=== PATIENT | male | born 1985 | race Caucasian/White ===

== ENCOUNTER 2024-03-07 23:12 | Emergency (ER) | payer MEDICAID ==
[~2024-03-07] VITALS: Ht 152.4 cm; Wt 68.2 kg
[2024-03-08] MEDS: sulfamethoxazole/trimethoprim DS (800/160mg) tablet PO ONE (01:27)
[2024-03-08] MEDS: cephalexin 250mg capsule PO ONE (01:28)
[2024-03-08] MEDS: LIDOcaine 1% W/epiNEPHrine 1:100,000 20ml vial IJ ONE (01:28)
[2024-03-08] MEDS ORDERED: CEPH-585 PO (01:43)
[2024-03-08] MEDS ORDERED: SULF1TAB45 PO (01:43)
[2024-03-08 02:00] VITALS: BP 134/78; PULSE 89; RESP 17; TEMP 98.2; O2SAT 98
[2024-03-08] MEDS ORDERED: IBUP-1984 PO (20:02)
== END 2024-03-08 02:00 | disposition home or self-care (01) ==
LOC: ER 23:13
DX: L02.415 Cutaneous abscess of right lower limb (principal); Z79.1 Long term (current) use of non-steroidal anti-inflammatories (NSAID); Z79.2 Long term (current) use of antibiotics; Z79.899 Other long term (current) drug therapy
CPT/HCPCS: 10060; 99283; J3490; A6407; A6449

== ENCOUNTER → 2024-03-08 | Emergency (ER) | payer MEDICAID ==
[~2024-03-08] VITALS: Ht 154.9 cm; Wt 52.3 kg
[~2024-03-08] MED LIST: CEPH-585 PO; IBUP-1984 PO; SULF1TAB45 PO
[2024-03-08] MEDS: oxyCODONE/APAP 5-325mg tablet PO ONE (19:31)
[2024-03-08] MEDS: LIDOcaine 1% W/epiNEPHrine 1:100,000 20ml vial SQ ONE (19:50)
[2024-03-08 20:11] VITALS: BP 136/85; PULSE 99; RESP 16; TEMP 98.7; O2SAT 100
== END | disposition home or self-care (01) ==
LOC: ER 18:34
DX: Z48.00 Encounter for change or removal of nonsurgical wound dressing (principal); L02.31 Cutaneous abscess of buttock
CPT/HCPCS: 99283; A6266; A6449

== ENCOUNTER 2024-07-20 10:26 | Emergency (ER) | payer MEDICAID, OTHER ==
[~2024-07-20] VITALS: Ht 157.5 cm; Wt 65.9 kg
[~2024-07-20 10:26] MED LIST changes: -IBUP-1984 PO; -SULF1TAB45 PO
[2024-07-20 10:28] VITALS: BP 144/87; PULSE 88; TEMP 98.4; O2SAT 99
[2024-07-20] MEDS ORDERED: SULF1TAB49 PO (11:41)
[2024-07-20] MEDS: CefTRIAXone 1000mg IM Kit (w/lidocaine diluent) IM ONE (12:05)
[2024-07-20] MEDS: ketorolac trometh 30MG/ML vial 30 MG/ML VIAL IM ONE (12:06)
[2024-07-20] MEDS: HYDROcodone/acetaminophen 5mg/325mg tablet PO ONE (12:07)
[2024-07-20 12:12] VITALS: RESP 18
== END 2024-07-20 12:13 | disposition home or self-care (01) ==
LOC: ER 10:27
DX: L02.31 Cutaneous abscess of buttock (principal); Z79.2 Long term (current) use of antibiotics
CPT/HCPCS: 96372; 99284; J0696; J1885